=== PATIENT | male | born 1965 | race Caucasian/White ===

== ENCOUNTER 2020-11-02 11:41 | Emergency (ER) | payer MEDICAID ==
[~2020-11-02] VITALS: Ht 182.9 cm; Wt 90.7 kg
[2020-11-02] MEDS ORDERED: DIPH25CA83 PO (12:35)
[2020-11-02] MEDS ORDERED: SULF1TAB48 PO (12:35)
--- NOTE | 2020-11-02 13:33 | NUR ---
PT SEEN AND EVALUATED BY DR VIDES.
--- NOTE | 2020-11-02 13:56 | NUR ---
PT WAS D/C'd TO HOME. D/C INSTRUCTIONS GIVEN TO THE PT BY DR VIDES.
[2020-11-02 13:58] VITALS: BP 128/88
== END 2020-11-02 13:59 | disposition home or self-care (01) ==
LOC: ER 11:41
DX: R21 Rash and other nonspecific skin eruption (principal)
CPT/HCPCS: A4663

== ENCOUNTER 2021-05-05 09:26 | Inpatient (IN) | payer MEDICAID ==
[~2021-05-05] VITALS: Ht 180.3 cm; Wt 93.0 kg
[~2021-05-05 09:26] MED LIST: DIPH25CA83 PO; SULF1TAB48 PO
[2021-05-05] MEDS ORDERED: ONDA4TAB5 PO (09:39)
[2021-05-05] MEDS ORDERED: ASPI81TA31 PO (09:39)
--- NOTE | 2021-05-05 09:39 | NUR ---
PT DOES NOT REMEMBER ALL NAMES AND DOSAGES OF HIS HOME MEDICATIONS.
[2021-05-05] MEDS ORDERED: ASPIRIN 81 MG TAB.CHEW PO ONE (09:45)
--- NOTE | 2021-05-05 10:08 | NUR ---
dr jordan, at bedside.
[2021-05-05 10:10] LABS: HEMATOCRIT 41.4 % (36.7-47.1); MEAN CORPUSCULAR HEMOGLOBIN 29.8 uug (23.8-33.4); MEAN CORPUSCULAR VOLUME 87.5 fL (73.0-96.2); PLATELET COUNT (AUTO) 204 K/uL (152-348)
[2021-05-05 10:15] LABS: CARBON DIOXIDE 26 mmol/L (21-32); CHLORIDE 110 mmol/L (98-107); CREATININE 1.1 mg/dL (0.6-1.3); GLUCOSE 102 mg/dL (74-106); POTASSIUM 3.6 mmol/L (3.5-5.1); UREA NITROGEN, BLOOD 19 mg/dL (7-18)
[2021-05-05 10:28] LABS: ALANINE AMINOTRANSFERASE 24 U/L (16-63); ALKALINE PHOSPHATASE 58 U/L (50-136); ASPARTATE AMINOTRANSFERASE 10 U/L (15-37); BILIRUBIN,DIRECT 0.1 mg/dL (0.0-0.2); BILIRUBIN,TOTAL 0.5 mg/dL (0.2-1.0); TOTAL PROTEIN, SERUM 6.7 g/dL (6.4-8.2)
[2021-05-05] MEDS ORDERED: ASPIRIN 81 MG TAB.CHEW ONE (10:37)
--- NOTE | 2021-05-05 11:11 | NUR ---
patient seen and assessed by JODY centeno at bedside.
--- NOTE | 2021-05-05 11:17 | NUR ---
A call to [facility] [place] charge R.N. and as stated by charge histotechnologist. "bed and nurse will be availabe after 1400 post dcd of one of our inpatient, I'll call you when bed availabe"
[2021-05-05] MEDS ORDERED: ACETAMINOPHEN 325 MG TABLET PO PRN (11:45)
[2021-05-05] MEDS ORDERED: NITROGLYCERIN 0.4 MG/TAB BOTTLE SL PRN (11:45)
[2021-05-05] MEDS ORDERED: ONDANSETRON 4 MG/2 ML VIAL IV PRN (11:45)
[2021-05-05] MEDS ORDERED: TEMAZEPAM 15 MG CAPSULE PO PRN (11:45)
[2021-05-05] MEDS ORDERED: MAGNESIUM HYDROXIDE 30 ML LIQUID UDC PO PRN (11:45)
[2021-05-05] MEDS ORDERED: REMEDY ESSENTIAL ZINC PASTE 113 GM TP PRN (11:45)
[2021-05-05] MEDS ORDERED: HYDROCODONE/APAP 5-325MG TABLET PO PRN (11:45)
[2021-05-05] MEDS ORDERED: MORPHINE SULFATE 4 MG/1 ML DISP.SYRIN IV PRN (11:45)
[2021-05-05] MEDS ORDERED: ATOR40TA PO (11:52)
[2021-05-05] MEDS ORDERED: LOSA25TA27 PO (11:52)
[2021-05-05] MEDS ORDERED: ALLO100T PO (11:53)
--- NOTE | 2021-05-05 13:22 | NUR ---
body temp 98.0, HR 54 sbp of 147/81. c/of tolerable level of CP 04/08.
--- NOTE | 2021-05-05 14:15 | NUR ---
A call to the floor at this time and per chargemaster analyst. patient will occupying room 307. and to call back after 1500 for report.
--- NOTE | 2021-05-05 15:16 | NUR ---
ultrasound of the heart done
--- NOTE | 2021-05-05 15:46 | NUR ---
pt. taken up to room 307 via wheelchair in no visible or reported distress. HR. 69, sbp 134/80 saturation of 98%. on RA.
[2021-05-05 16:46] VITALS: BP 128/67
[2021-05-05] MEDS ORDERED: CARVEDILOL 3.125 MG TABLET PO SCH (17:00)
--- NOTE | 2021-05-05 19:35 | NUR ---
Report received. Patient AAO, denies any discomfort.
[2021-05-05 20:50] VITALS: BP 120/72
[2021-05-05] MEDS: ATORVASTATIN 40 MG TABLET PO SCH (20:54)
[2021-05-05] MEDS: ENOXAPARIN SODIUM 40 MG/0.4 ML DISP.SYRIN SQ SCH (20:54)
[2021-05-06 00:35] VITALS: BP 121/74
[2021-05-06 06:15] LABS: HEMATOCRIT 40.7 % (36.7-47.1); MEAN CORPUSCULAR HEMOGLOBIN 29.6 uug (23.8-33.4); MEAN CORPUSCULAR VOLUME 88.1 fL (73.0-96.2); PLATELET COUNT (AUTO) 203 K/uL (152-348)
[2021-05-06] MEDS: PANTOPRAZOLE SODIUM 40 MG TABLET.DR PO SCH (06:17)
[2021-05-06 06:30] LABS: CREATININE 1.2 mg/dL (0.6-1.3); MAGNESIUM 2.1 mg/dL (1.8-2.4); PHOSPHOROUS 4.1 mg/dL (2.5-4.9); POTASSIUM 4.3 mmol/L (3.5-5.1)
--- NOTE | 2021-05-06 06:44 | NUR ---
Stable all night, no c/o chest pains.
[2021-05-06] MEDS: ASPIRIN 81 MG TAB.CHEW PO SCH (08:11)
[2021-05-06] MEDS: ALLOPURINOL 100 MG TABLET PO SCH (08:12)
[2021-05-06] MEDS: LOSARTAN POTASSIUM 25 MG TABLET PO SCH (08:12)
--- NOTE | 2021-05-06 10:00 | NUR ---
new order for cardiac angiogram, called [facility], per [facility] fax order and face sheet, paperwork faxed. consent completed by patient, questionnaire answered.
--- NOTE | 2021-05-06 11:15 | NUR ---
verified with Dr. Tee klein ok to order BLS ambulance, per MD march for BLS transport.
--- NOTE | 2021-05-06 11:28 | NUR ---
called [facility], patient to be picked up at 1300 for cardiac cta.
[2021-05-06 12:03] VITALS: BP 125/73
[2021-05-06 16:00] VITALS: BP 114/66
--- NOTE | 2021-05-06 19:00 | NUR ---
Received report. Patient is awake, A/Ox4. Denies pain at this time. VSS. RA. NAD. Able to make needs known. RAC 20SL and LAC 16SL. Bed at lowest position, brakes on, siderails x2. Call light within reach. Will continue to monitor.
[2021-05-06 20:00] VITALS: BP 116/76
[2021-05-06] MEDS: ATORVASTATIN 40 MG TABLET PO SCH (20:27)
[2021-05-06] MEDS: ENOXAPARIN SODIUM 40 MG/0.4 ML DISP.SYRIN SQ SCH ×2 (20:28→20:32)
[2021-05-07] VITALS: BP 116/74
--- NOTE | 2021-05-07 00:23 | NUR ---
Resting comfortably. No significant change of condition noted. Will continue to monitor.
[2021-05-07 04:00] VITALS: BP 122/68
[2021-05-07] MEDS: PANTOPRAZOLE SODIUM 40 MG TABLET.DR PO SCH (06:07)
--- NOTE | 2021-05-07 07:00 | NUR ---
Bradycardia 48bpm unsustained. Dr Myrick made aware.
--- NOTE | 2021-05-07 08:30 | NUR ---
new discharge orders, patient states son will pick him up.
[2021-05-07 08:44] VITALS: BP 121/81
[2021-05-07] MEDS: LOSARTAN POTASSIUM 25 MG TABLET PO SCH (08:44)
[2021-05-07] MEDS: ALLOPURINOL 100 MG TABLET PO SCH (08:44)
[2021-05-07] MEDS: ASPIRIN 81 MG TAB.CHEW PO SCH (08:44)
--- NOTE | 2021-05-07 09:00 | NUR ---
all discharge instructions given to patient, patient understands instructions. reminded patient to f/u with pmd and continue with current medication regimen and return to nearest er or call 911 if symptoms worsen. all paperwork signed. inventory list completed all belongs accounted for. all questions answered. IV site to right and left ac removed minimal bleeding, dressing applied.
--- NOTE | 2021-05-07 09:26 | NUR ---
patient assisted downstairs by staff, upon d/c v.s wnl, no complaints of chest pain or discomfort, gait is stable.
== END 2021-05-07 09:30 | disposition home or self-care (01) | DRG 198 ==
LOC: ER 09:26 → TELE3 15:41
PROVIDERS: ADMIT Nurse Practitioner Acute Care; ATTEND Nurse Practitioner Acute Care
DX: I25.119 Atherosclerotic heart disease of native coronary artery with unspecified angina pectoris (principal); N17.0 Acute kidney failure with tubular necrosis; I10 Essential (primary) hypertension; E66.9 Obesity, unspecified; E78.5 Hyperlipidemia, unspecified; I25.2 Old myocardial infarction; Z95.5 Presence of coronary angioplasty implant and graft; Z79.82 Long term (current) use of aspirin; Z68.28 Body mass index [BMI] 28.0-28.9, adult
CPT/HCPCS: 36415; 71045; 83735; 84100; 84484; 85025; 85730; 93005; 93307; A4663; G0378; J1650; J8499